=== PATIENT | female | born 1970 | race Caucasian/White ===

== ENCOUNTER 2020-04-16 17:43 | Emergency (ER) | payer MEDICAID ==
[~2020-04-16] VITALS: Ht 152.4 cm; Wt 59.1 kg
[2020-04-16 17:47] VITALS: BP 138/79
== END 2020-04-16 18:53 | disposition home or self-care (01) ==
LOC: EMS 17:43
DX: U07.1 COVID-19 (principal)
CPT/HCPCS: 71046; 71046-TC

== ENCOUNTER 2021-10-13 14:11 | Emergency (ER) | payer MEDICAID ==
[~2021-10-13] VITALS: Ht 160 cm; Wt 81.8 kg
[2021-10-13] MEDS ORDERED: SODIUM CHLORIDE 0.9% 1,000 ML IV ONE (14:45)
[2021-10-13] MEDS ORDERED: KETOROLAC TROMETHAMINE 30 MG/ML VIAL IVP ONE (14:45)
[2021-10-13] MEDS ORDERED: ONDANSETRON HCL 4 MG/2 ML VIAL IVP ONE (14:45)
[2021-10-13 14:50] LABS: BASOPHILS % (AUTO) 0.5 % (0.0-2.0); EOSINOPHILS % (AUTO) 0.8 % (1.0-6.0); HEMOGLOBIN 14.3 g/dL (12.0-16.0); LYMPHOCYTES # (AUTO) 2.2 K/uL (1.0-4.8); LYMPHOCYTES % (AUTO) 35.8 % (22.0-44.0); MEAN CORPUSCULAR HEMOGLOBIN 29.6 pg (26.0-34.0); MEAN CORPUSCULAR HGB CONC 33.3 G/dL (31.0-37.0); MEAN CORPUSCULAR VOLUME 89 fL (80-100); MONOCYTES # (AUTO) 0.4 K/uL (0.1-1.0); MONOCYTES % (AUTO) 6.5 % (2.0-9.0); NEUTROPHILS # (AUTO) 3.4 K/uL (1.8-7.7); NEUTROPHILS % (AUTO) 56.4 % (40.0-70.0); PLATELET COUNT (AUTO) 163 K/uL (150-450); RED BLOOD CELL COUNT(AUTO) 4.84 MIL/uL (4.00-5.20); RED CELL DISTRIBUTION WIDTH 13.1 % (11.5-14.5)
[2021-10-13 15:20] LABS: ANION GAP 8 mmol/L (8-16); CALCIUM, TOTAL 8.5 mg/dL (8.8-10.5); CARBON DIOXIDE 26 mmol/L (22-29); CHLORIDE 108 mmol/L (98-107); CREATININE 0.56 mg/dL (0.60-1.30); GLOMERULAR FILTR. RATE CALC > 60 mL/min (>60); GLUCOSE,RANDOM 96 mg/dL (70-110); POTASSIUM 3.5 mmol/L (3.5-5.1); SODIUM SERUM 142 mmol/L (136-145); UREA NITROGEN, BLOOD 15 mg/dL (7-18)
[2021-10-13 15:31] LABS: ALANINE AMINOTRANSFERASE 36 U/L (12-78); ALBUMIN 3.5 g/dL (3.4-5.0); ALKALINE PHOSPHATASE 56 U/L (46-116); ASPARTATE AMINOTRANSFERASE 16 U/L (15-37); BILIRUBIN,TOTAL 0.3 mg/dL (0.1-1.0); HCG,QUANTITATIVE 3 mIU/mL (0-6); LIPASE 64 U/L (73-393); TOTAL PROTEIN, SERUM 6.5 g/dL (6.4-8.2)
[2021-10-13 16:21] LABS: APPEARANCE,URINE CLEAR (CLEAR); BILIRUBIN,URINE NEGATIVE (NEGATIVE); GLUCOSE, URINE (UA) NEGATIVE (NEGATIVE); KETONES,URINE NEGATIVE (NEGATIVE); LEUKOCYTE ESTERASE ,URINE NEGATIVE (NEGATIVE); NITRATE,URINE NEGATIVE (NEGATIVE); OCCULT BLOOD,URINE NEGATIVE (NEGATIVE); PROTEIN,URINE NEGATIVE (NEGATIVE); SPECIFIC GRAVITIY, URINE 1.003 (1.003-1.030); UROBILINOGEN,URINE <=1.0 mg/dL (<=1.0)
[2021-10-13] MEDS ORDERED: PB/HYOSCY/ATR/SCOP/LIDO/MAALOX 55 ML BOTTLE PO ONE (18:30)
[2021-10-13] MEDS ORDERED: MORPHINE SULFATE 2 MG/ML SYRINGE IVP ONE (18:30)
[2021-10-13] MEDS ORDERED: FAMO20 PO (19:10)
[2021-10-13 19:15] VITALS: BP 126/60
== END 2021-10-13 19:53 | disposition home or self-care (01) ==
LOC: EMS 14:12
DX: R10.11 Right upper quadrant pain (principal); I10 Essential (primary) hypertension
CPT/HCPCS: 99285; 74176; 96374; 76700; 96375; 96361; 80053; 81003; 83690; 84702; 85025; 36415; J1885; J2270; J2405; J7030

== ENCOUNTER 2021-10-15 10:21 | Emergency (ER) | payer MEDICAID ==
[~2021-10-15] VITALS: Ht 149.9 cm; Wt 73.2 kg
[~2021-10-15 10:21] MED LIST: FAMO20 PO
[2021-10-15] MEDS ORDERED: SODIUM CHLORIDE 0.9% 1,000 ML IV ONE (11:45)
[2021-10-15] MEDS ORDERED: ONDANSETRON HCL 4 MG/2 ML VIAL IVP ONE (11:45)
[2021-10-15 11:46] LABS: BASOPHILS % (AUTO) 0.3 % (0.0-2.0); EOSINOPHILS % (AUTO) 0.6 % (1.0-6.0); HEMOGLOBIN 14.8 g/dL (12.0-16.0); LYMPHOCYTES # (AUTO) 1.7 K/uL (1.0-4.8); LYMPHOCYTES % (AUTO) 29.2 % (22.0-44.0); MEAN CORPUSCULAR HEMOGLOBIN 29.7 pg (26.0-34.0); MEAN CORPUSCULAR HGB CONC 33.6 G/dL (31.0-37.0); MEAN CORPUSCULAR VOLUME 89 fL (80-100); MONOCYTES # (AUTO) 0.3 K/uL (0.1-1.0); MONOCYTES % (AUTO) 5.9 % (2.0-9.0); NEUTROPHILS # (AUTO) 3.7 K/uL (1.8-7.7); PLATELET COUNT (AUTO) 162 K/uL (150-450); RED BLOOD CELL COUNT(AUTO) 4.97 MIL/uL (4.00-5.20); RED CELL DISTRIBUTION WIDTH 13.2 % (11.5-14.5)
[2021-10-15 12:00] LABS: ANION GAP 7 mmol/L (8-16); CALCIUM, TOTAL 9.2 mg/dL (8.8-10.5); CARBON DIOXIDE 27 mmol/L (22-29); CHLORIDE 104 mmol/L (98-107); CREATININE 0.65 mg/dL (0.60-1.30); GLUCOSE,RANDOM 124 mg/dL (70-110); POTASSIUM 4.1 mmol/L (3.5-5.1); SODIUM SERUM 138 mmol/L (136-145); UREA NITROGEN, BLOOD 13 mg/dL (7-18)
[2021-10-15 12:01] LABS: GLOMERULAR FILTR. RATE CALC > 60 mL/min (>60)
[2021-10-15 12:06] LABS: ALANINE AMINOTRANSFERASE 38 U/L (12-78); ALKALINE PHOSPHATASE 62 U/L (46-116); ASPARTATE AMINOTRANSFERASE 13 U/L (15-37); BILIRUBIN,TOTAL 0.3 mg/dL (0.1-1.0); LIPASE 86 U/L (73-393); TOTAL PROTEIN, SERUM 7.5 g/dL (6.4-8.2)
[2021-10-15 12:29] LABS: LACTIC ACID 0.9 mmol/L (0.4-2.0)
[2021-10-15 12:51] LABS: HCG,QUANTITATIVE 3 mIU/mL (0-6)
[2021-10-15] MEDS ORDERED: FAMOTIDINE 10 MG/ML 2 ML VIAL IVP ONE (13:30)
[2021-10-15] MEDS ORDERED: MORPHINE SULFATE 4 MG/ML SYRINGE IVP ONE (13:30)
[2021-10-15 13:56] LABS: COVID AG,FIA SOURCE NASOPHARYNGEAL
[2021-10-15] MEDS ORDERED: FAMO20TA8 PO (14:45)
[2021-10-15 14:54] LABS: APPEARANCE,URINE CLEAR (CLEAR); BILIRUBIN,URINE NEGATIVE (NEGATIVE); GLUCOSE, URINE (UA) NEGATIVE (NEGATIVE); KETONES,URINE NEGATIVE (NEGATIVE); LEUKOCYTE ESTERASE ,URINE NEGATIVE (NEGATIVE); NITRATE,URINE NEGATIVE (NEGATIVE); OCCULT BLOOD,URINE NEGATIVE (NEGATIVE); PH,URINE 6.5 (5.0-8.0); PROTEIN,URINE NEGATIVE (NEGATIVE); SPECIFIC GRAVITIY, URINE 1.006 (1.003-1.030); UROBILINOGEN,URINE <=1.0 mg/dL (<=1.0)
[2021-10-15 14:56] LABS: BACTERIA,URINE None Seen /HPF (None Seen); RBC,URINE None Seen /HPF (0-2); SQUAMOUS EPITHELIAL CELL,UR Rare /LPF (None Seen); WBC,URINE None Seen /HPF (0-5)
[2021-10-15 15:10] VITALS: BP 116/75
== END 2021-10-15 15:50 | disposition home or self-care (01) ==
LOC: EMS 10:22
DX: R10.11 Right upper quadrant pain (principal); I10 Essential (primary) hypertension; Z20.822 Contact with and (suspected) exposure to COVID-19
CPT/HCPCS: 99284; 74176; 96374; 96375; 96361; 87426; 80053; 81001; 83605; 83690; 84484; 84702; 85025; 36415; J3490; J2270; J2405; J7030